=== PATIENT | male | born 1955 | race Caucasian/White ===

== ENCOUNTER 2017-08-28 13:29 | Emergency (ER) | payer SELFPAY ==
[~2017-08-28] VITALS: Ht 167.6 cm; Wt 82.0 kg
[2017-08-28 13:40] VITALS: Ht 167.6 cm; Wt 82.0 kg
== END 2017-08-28 17:33 | disposition left against medical advice (07) ==
LOC: FTE 13:29
DX: Z53.21 Procedure and treatment not carried out due to patient leaving prior to being seen by health care provider (principal)